=== PATIENT | male | born 1985 | race Caucasian/White ===

== ENCOUNTER 2024-11-21 18:38 | Inpatient (IN) | payer OTHER, MEDICAID ==
[~2024-11-21] VITALS: Ht 182.9 cm; Wt 246.3 kg
[2024-11-21] MEDS ORDERED: VANCOMYCIN 1000MG/250ML 250 ML IV ONE (18:45)
[2024-11-21] MEDS: VANCOMYCIN 1G PREMIX 200 ML IV SCH (19:29)
[2024-11-21] MEDS: MORPHINE SULFATE 4 MG/ML INJ (FOR IV/IM USE) IV ONE (19:32)
[2024-11-21 19:37] LABS: BASOPHILS % 0.9 % (0.0-2.0); EOSINOPHILS % 2.5 % (0.0-5.0); HEMATOCRIT. 26.8 % (42.0-52.0); HEMOGLOBIN. 7.6 g/dL (14.0-18.0); LYMPHOCYTES % 18.8 % (20.0-50.0); MEAN PLATELET VOLUME 6.9 fl (7.4-10.4); MONOCYTES % 7.7 % (2.0-8.0); NEUTROPHILS % 70.1 % (40.0-76.0); PLATELET 642 x1000/uL (130-400); RED BLOOD CELL COUNT 3.77 mill/uL (4.7-6.1); RED CELL DISTRIBUTION WIDTH 21.1 % (11.6-14.6)
[2024-11-21 19:48] LABS: INR 1.3
[2024-11-21 19:51] LABS: CREATININE 0.7 mg/dL (0.6-1.3); TROPONIN I HIGH SENSITIVITY 12 ng/L (3.0-53); UREA NITROGEN BLOOD 22 mg/dL (9-23)
[2024-11-21 19:53] LABS: BILIRUBIN DIRECT 0.1 mg/dL (<=3.0); BILIRUBIN TOTAL 0.4 mg/dL (0.1-1.0); PROTEIN TOTAL 6.4 g/dL (6.0-8.3)
[2024-11-21 19:59] LABS: LACTIC ACID 2.2 mmol/L (0.4-2.0)
[2024-11-21 20:01] LABS: ASPARTATE AMINOTRANSFERASE < 8 IU/L (<34)
[2024-11-21] MEDS: SODIUM CHLORIDE 0.9% 1,000 ML IV ONE (20:08)
[2024-11-21 21:03] VITALS: BP 103/51; PULSE 88; RESP 18; TEMP 36.3; O2SAT 92
[2024-11-21] MEDS ORDERED: POTASSIUM CHLORIDE 20MEQ TABLET SR PO PRN (21:45)
[2024-11-21] MEDS ORDERED: MAGNESIUM/ALUMINUM HYDROXIDE/SIMETHICONE 30ML UDC PO PRN (21:45)
[2024-11-21] MEDS ORDERED: CLONIDINE 0.1MG TABLET PO PRN (21:45)
[2024-11-21] MEDS ORDERED: DEXTROSE 50% WATER 50ML SYRINGE IV PRN (21:45)
[2024-11-21] MEDS ORDERED: ONDANSETRON HCL 4MG/2ML INJ IV PRN (21:45)
[2024-11-21] MEDS ORDERED: DOCUSATE SODIUM 100MG CAPSULE PO PRN (21:45)
[2024-11-21] MEDS ORDERED: IPRATROPIUM/ALBUTEROL 0.5-3(2.5)MG/3ML NEB HHN PRN (21:45)
[2024-11-21 22:00] VITALS: BP 103/51; PULSE 88; RESP 18; TEMP 36.4
[2024-11-21] MEDS: HYDROCODONE/ACETAMINOPHEN 5/325MG TABLET PO PRN (22:07)
[2024-11-22] VITALS (13 sets, daily range): BP systolic 98–121; BP diastolic 34–48; PULSE 82–95; RESP 15–18; TEMP 35.5584–37; O2SAT 96–97
[2024-11-22 00:05] LABS: HEPATITIS C AB NON REACTIVE (Neg) (Negative)
[2024-11-22] MEDS: ACETAMINOPHEN 325MG TABLET PO PRN (02:15)
[2024-11-22 07:47] LABS: BASOPHILS % 0.7 % (0.0-2.0); EOSINOPHILS % 3.0 % (0.0-5.0); LYMPHOCYTES % 16.5 % (20.0-50.0); MEAN PLATELET VOLUME 7.0 fl (7.4-10.4); MONOCYTES % 6.6 % (2.0-8.0); NEUTROPHILS % 73.2 % (40.0-76.0); PLATELET 381 x1000/uL (130-400); RED BLOOD CELL COUNT 3.01 mill/uL (4.7-6.1); RED CELL DISTRIBUTION WIDTH 20.9 % (11.6-14.6)
[2024-11-22 08:01] LABS: CREATININE 0.6 mg/dL (0.6-1.3); UREA NITROGEN BLOOD 20 mg/dL (9-23)
[2024-11-22 08:03] LABS: PHOSPHORUS 3.7 mg/dL (2.5-4.9)
[2024-11-22 08:16] LABS: HEMATOCRIT. 21.5 % (42.0-52.0); HEMOGLOBIN. 6.3 g/dL (14.0-18.0)
[2024-11-22] MEDS: BLOOD SUGAR DIAGNOSTIC STRIP TEST SCH (11:45)
[2024-11-22] MEDS ORDERED: NALOXONE HCL 0.4MG/ML VIAL IV PRN (12:45)
[2024-11-22] MEDS: MAGNESIUM 1 G PREMIX 100 ML IV ONE (18:55)
[2024-11-23] VITALS (14 sets, daily range): BP systolic 97–126; BP diastolic 39–75; PULSE 80–89; RESP 16–18; TEMP 36.00288–36.83628; O2SAT 92–97
[2024-11-23 06:10] LABS: UREA NITROGEN BLOOD 13 mg/dL (9-23)
[2024-11-23 06:11] LABS: CREATININE 0.5 mg/dL (0.6-1.3)
[2024-11-23 06:14] LABS: BILIRUBIN DIRECT 0.3 mg/dL (<=3.0); BILIRUBIN TOTAL 0.7 mg/dL (0.1-1.0); PHOSPHORUS 3.6 mg/dL (2.5-4.9); PROTEIN TOTAL 5.7 g/dL (6.0-8.3)
[2024-11-23 06:50] LABS: ASPARTATE AMINOTRANSFERASE < 8 IU/L (<34); BASOPHILS % 0.6 % (0.0-2.0); EOSINOPHILS % 2.3 % (0.0-5.0); HEMATOCRIT. 22.5 % (42.0-52.0); LYMPHOCYTES % 16.3 % (20.0-50.0); MEAN PLATELET VOLUME 7.2 fl (7.4-10.4); MONOCYTES % 7.3 % (2.0-8.0); NEUTROPHILS % 73.5 % (40.0-76.0); PLATELET 354 x1000/uL (130-400); RED BLOOD CELL COUNT 3.15 mill/uL (4.7-6.1); RED CELL DISTRIBUTION WIDTH 20.9 % (11.6-14.6)
[2024-11-23 07:14] LABS: HEMOGLOBIN. 6.6 g/dL (14.0-18.0)
[2024-11-23] MEDS: HYDROCODONE/ACETAMINOPHEN 5/325MG TABLET PO PRN (09:33)
[2024-11-23 14:35] LABS: INR 1.1
[2024-11-23 14:44] LABS: FOLIC ACID (FOLATE) SERUM 17.55 ng/mL (>5.38); VITAMIN B12 SERUM 682 pg/mL (211-911)
[2024-11-23] MEDS ORDERED: Venofer 200mg IV x3 days XX SCH (17:15)
[2024-11-23] MEDS: IRON SUCROSE COMPLEX 100 MG/5 ML ML IV SCH (18:19)
[2024-11-23] MEDS: SODIUM HYPOCHLORITE 0.125% 473ML SOLUTION TOP SCH (18:19)
[2024-11-23 19:55] LABS: CLARITY URINE CLOUDY (CLEAR); COLOR URINE DARK YELLOW (YELLOW); GLUCOSE URINE NEGATIVE (NEGATIVE); KETONES URINE NEGATIVE (NEGATIVE); LEUKOCYTE ESTERASE URINE TRACE (NEGATIVE); NITRITE URINE NEGATIVE (NEGATIVE); OCCULT BLOOD URINE NEGATIVE (NEGATIVE); PH URINE 7.5 (4.5-8.0); PROTEIN URINE 1+ (NEGATIVE); SPECIFIC GRAVITY URINE 1.025 (1.005-1.030); UROBILINOGEN URINE 1.0 E.U./dL (0.2-1.0)
[2024-11-23 20:14] LABS: BACTERIA URINE 2+; RBC URINE 0-2 /hpf (0-2); SQUAMOUS EPITHELIAL CELL URINE RARE /lpf (RARE/1+)
[2024-11-23] MEDS: SODIUM CHLORIDE 0.9% 500 ML IV ONE (22:00)
[2024-11-24] VITALS (9 sets, daily range): BP systolic 94–126; BP diastolic 48–59; PULSE 82–88; RESP 16–18; TEMP 36.4–37.2; O2SAT 91–99
[2024-11-24] MEDS: MORPHINE SULFATE 2 MG/ML INJ (NOT FOR IM USE) IV SCH (03:07)
[2024-11-24] MEDS ORDERED: MORPHINE SULFATE 2 MG/ML INJ (NOT FOR IM USE) IV NR (03:15)
[2024-11-24] MEDS: PANTOPRAZOLE 40MG DR TABLET PO SCH (06:45)
[2024-11-24 07:17] LABS: BASOPHILS % 0.9 % (0.0-2.0); EOSINOPHILS % 2.0 % (0.0-5.0); LYMPHOCYTES % 15.7 % (20.0-50.0); MEAN PLATELET VOLUME 6.9 fl (7.4-10.4); MONOCYTES % 8.9 % (2.0-8.0); NEUTROPHILS % 72.5 % (40.0-76.0); PLATELET 325 x1000/uL (130-400); RED BLOOD CELL COUNT 3.27 mill/uL (4.7-6.1); RED CELL DISTRIBUTION WIDTH 21.4 % (11.6-14.6)
[2024-11-24 07:39] LABS: CREATININE 0.5 mg/dL (0.6-1.3)
[2024-11-24 07:40] LABS: UREA NITROGEN BLOOD 11 mg/dL (9-23)
[2024-11-24 07:53] LABS: HEMATOCRIT. 23.2 % (42.0-52.0); HEMOGLOBIN. 6.9 g/dL (14.0-18.0)
[2024-11-24] MEDS: LIDOCAINE 5% PATCH TOP SCH (12:53)
[2024-11-24] MEDS: SENNOSIDES/DOCUSATE SOD 8.6/50MG TABLET PO SCH (20:14)
[2024-11-25] VITALS: BP 101/55; PULSE 88; RESP 18; TEMP 36.4; O2SAT 95
[2024-11-25 04:00] VITALS: BP 108/46; PULSE 84; RESP 16; TEMP 36.4; O2SAT 93
[2024-11-25 08:00] VITALS: BP 109/51; PULSE 71; RESP 20; TEMP 35.8; O2SAT 93
[2024-11-25 11:40] LABS: BASOPHILS % 0.9 % (0.0-2.0); EOSINOPHILS % 2.0 % (0.0-5.0); HEMATOCRIT. 26.3 % (42.0-52.0); HEMOGLOBIN. 7.7 g/dL (14.0-18.0); LYMPHOCYTES % 11.5 % (20.0-50.0); MEAN PLATELET VOLUME 7.4 fl (7.4-10.4); MONOCYTES % 7.1 % (2.0-8.0); NEUTROPHILS % 78.5 % (40.0-76.0); PLATELET 299 x1000/uL (130-400); RED BLOOD CELL COUNT 3.55 mill/uL (4.7-6.1); RED CELL DISTRIBUTION WIDTH 21.8 % (11.6-14.6)
[2024-11-25 12:00] VITALS: BP 118/49; PULSE 69; RESP 17; TEMP 37.2; O2SAT 95
[2024-11-25 12:01] LABS: CREATININE 0.6 mg/dL (0.6-1.3)
[2024-11-25 12:02] LABS: UREA NITROGEN BLOOD 9 mg/dL (9-23)
[2024-11-25 16:00] VITALS: BP_SYST 102; BP_SYST 123; BP_DIAS 58; BP_DIAS 66; PULSE 53; PULSE 90; RESP 16; RESP 17; TEMP 36.5; TEMP 36.7; O2SAT 95; O2SAT 98
[2024-11-25 20:00] VITALS: BP 102/54; PULSE 89; RESP 19; TEMP 36.2; O2SAT 96
[2024-11-26] VITALS (8 sets, daily range): BP systolic 98–120; BP diastolic 46–60; PULSE 82–91; RESP 18–20; TEMP 36.3–36.6; O2SAT 95–98
[2024-11-26 08:19] LABS: BASOPHILS % 0.9 % (0.0-2.0); EOSINOPHILS % 3.1 % (0.0-5.0); HEMATOCRIT. 27.0 % (42.0-52.0); HEMOGLOBIN. 7.8 g/dL (14.0-18.0); LYMPHOCYTES % 15.6 % (20.0-50.0); MEAN PLATELET VOLUME 6.9 fl (7.4-10.4); MONOCYTES % 9.4 % (2.0-8.0); NEUTROPHILS % 71.0 % (40.0-76.0); PLATELET 283 x1000/uL (130-400); RED BLOOD CELL COUNT 3.60 mill/uL (4.7-6.1); RED CELL DISTRIBUTION WIDTH 22.2 % (11.6-14.6)
[2024-11-26 08:24] LABS: ADD RBC MORPHOLOGY YES
[2024-11-26 08:39] LABS: CREATININE 0.6 mg/dL (0.6-1.3)
[2024-11-26 08:40] LABS: UREA NITROGEN BLOOD 10 mg/dL (9-23)
[2024-11-26 09:13] LABS: PLATELET ESTIMATE NORMAL
== END 2024-11-26 23:54 | disposition short-term general hospital (02) | DRG 812 ==
LOC: ER 18:38 → EDBD 18:38 → EDBEDREQTM 20:39 → EDBEDREQ 20:39 → ENRESERV 20:48 → 5WST 21:07
PROVIDERS: ADMIT Family Medicine Adult Medicine; ATTEND Family Medicine Adult Medicine
PROC: 0HQHXZZ Repair Right Upper Leg Skin, External Approach (ICD-10-PCS; 2024-11-21)
PROC: 30233N1 Transfusion of Nonautologous Red Blood Cells into Peripheral Vein, Percutaneous Approach (ICD-10-PCS; principal; 2024-11-22)
DX: D62 Acute posthemorrhagic anemia (principal); Z68.45 Body mass index [BMI] 70 or greater, adult; E66.01 Morbid (severe) obesity due to excess calories; S71.012A Laceration without foreign body, left hip, initial encounter; S71.011A Laceration without foreign body, right hip, initial encounter; T45.515A Adverse effect of anticoagulants, initial encounter; X58.XXXA Exposure to other specified factors, initial encounter; Z74.01 Bed confinement status; Z86.718 Personal history of other venous thrombosis and embolism; Y93.89 Activity, other specified; Y92.89 Other specified places as the place of occurrence of the external cause; Y99.8 Other external cause status; Z79.01 Long term (current) use of anticoagulants; Z87.891 Personal history of nicotine dependence
CPT/HCPCS: 12001; 36415; 76881; 80048; 80076; 81003; 82270; 82607; 82728; 82746; 82962; 83036; 83540; 83550; 83605; 83735; 83880; 84100; 84145; 84425; 84484; 85014; 85018; 85025; 85044; 85379; 86705; 86850; 86900; 86920; 87340; 93005; 99291; A4606; J2270; J3370; J3475; J7030; P9016